=== PATIENT | female | born 1990 | race Caucasian/White ===

== ENCOUNTER 2018-06-15 15:18 | Emergency (ER) | payer OTHER ==
[2018-06-15 15:39] VITALS: BP 119/82; PULSE 83; RESP 16; TEMP 97.9; O2SAT 100
[2018-06-15] MEDS ORDERED: Clindamycin 600mg/50ml D5W 600 MG/50 ML VIAL IVPB ONE (15:50)
--- NOTE | 2018-06-15 15:53 | ED PDOC ---
HPI: Skin/Bite Injury Time Seen by Provider: 06/15/18 15:44 Chief Complaint (Nursing): Bite History Per: Patient Onset/Duration Of Symptoms: Days (3) Current Symptoms Are (Timing): Still Present Location Of Injury: Right: Hip Quality Of Symptoms: Swollen Severity: Moderate Additional Complaint(s): Redeness and swelling right hip x 3 days, possible insect bite. denies fever or drainage Past Medical History Vital Signs: Last Vital Signs Temp 97.9 F 06/15/18 15:36 Pulse 83 06/15/18 15:36 Resp 16 06/15/18 15:36 BP 119/82 06/15/18 15:36 Pulse Ox 100 06/15/18 15:53 - Medical History PMH: No Chronic Diseases - Family History Family History: States: Unknown Family Hx - Immunization History Hx Tetanus Toxoid Vaccination: No Hx Influenza Vaccination: No Hx Pneumococcal Vaccination: No - Home Medications Home Medications: Ambulatory Orders Medication Instructions Recorded Ciprofloxacin 0.3% [Ciloxan 0.3% 1 drop BOTHEYES QID #1 bottle 04/29/16 Oph SOLN] Clindamycin [Cleocin] 300 mg PO TID #30 cap 06/15/18 Naproxen [Naprosyn] 500 mg PO Q12H #20 tab 06/15/18 - Allergies Allergies/Adverse Reactions: Allergies Allergy/AdvReac Type Severity Reaction Status Date / Time No Known Allergies Allergy Verified 06/15/18 15:36 Review of Systems Constitutional: Negative for: Fever, Chills Skin: Positive for: Other (Cellulitis right hip) Physical Exam - Physical Exam Appears: Positive for: Non-toxic, No Acute Distress Skin: Positive for: Rash (Right hip 3cm x 4 cm area of erythema and induration. No fluctuance. Tender and warm) - Laboratory Results Result Diagrams: 06/15/18 15:55 - ECG O2 Sat by Pulse Oximetry: 100 Disposition - Clinical Impression Clinical Impression: Cellulitis - Patient ED Disposition Is Patient to be Admitted: No Counseled Patient/Family Regarding: Studies Performed, Diagnosis, Need For Followup, Rx Given - Disposition Referrals: [facility] [Outside] Disposition: Routine/Home Disposition Time: 17:19 Condition: FAIR Prescriptions: Clindamycin [Cleocin] 300 mg PO TID #30 cap Naproxen [Naprosyn] 500 mg PO Q12H #20 tab Instructions: Cellulitis (Skin Infection), Adult (DC) Forms: [facility] (Armenian)
[2018-06-15 16:13] LABS: BASO # 0.1 K/uL (0.0-0.2); BASO % 0.8 % (0.0-2.0); EOS % 0.3 % (0.0-4.0); HEMOGLOBIN 13.2 g/dL (12.0-16.0); LYMPH # 3.5 K/uL (1.0-4.3); LYMPH % 26.4 % (20.0-40.0); MEAN CELL VOLUME 83.6 fl (81.0-99.0); MEAN CORPUSCULAR HEMOGLOBIN 26.8 pg (27.0-31.0); MEAN PLATELET VOLUME 8.4 fl (7.2-11.7); MONO # 1.3 K/uL (0.0-0.8); MONO % 9.7 % (0.0-10.0); NEUT # 8.4 K/uL (1.8-7.0); NEUT % 62.8 % (50.0-75.0); NRBC % 0.1 % (0.0-0.0); RBC 4.94 Mil/uL (3.80-5.20); RED CELL DISTRIBUTION WIDTH 14.2 % (11.5-14.5); WHITE BLOOD COUNT 13.4 K/uL (4.8-10.8)
== END 2018-06-15 18:35 | disposition home or self-care (01) ==
LOC: H.ER 15:18
DX: L03.115 Cellulitis of right lower limb (principal); W57.XXXA Bitten or stung by nonvenomous insect and other nonvenomous arthropods, initial encounter

== ENCOUNTER 2018-10-28 06:38 | Emergency (ER) | payer OTHER ==
--- NOTE | 2018-10-28 07:50 | ED PDOC ---
HPI: Female Pain Time Seen by Provider: 10/28/18 07:01 Chief Complaint (Nursing): Female Genitourinary Chief Complaint (Provider): Female Genitourinary History Per: Patient History/Exam Limitations: no limitations Onset/Duration Of Symptoms: Days (x3) Current Symptoms Are (Timing): Still Present Additional Complaint(s): Patient is a 27 y/o female with no significant PMHx who presents to the ED for evaluation of pink vaginal spotting for the past three days and a few darker spots of vaginal bleeding since this morning. Patient was recently treated at [facility] for a bartholin cyst. Patient was given antibiotics and since the cyst has decreased in size and the pain had improved. However, patient's vaginal pain has returned and she is unsure what exactly is causing the pain. Patient denies abdominal pain. Patient had a positive test on 10/22/2018 but has had no workup for thus far. Patient has had one previous and no previous miscarriage or elective . Of note, patient's last period was on 09/22/2018. PCP: None Provided Past Medical History Reviewed: Historical Data, Nursing Documentation, Vital Signs Vital Signs: Last Vital Signs Temp 98.3 F 10/28/18 06:48 Pulse 87 10/28/18 06:48 Resp 18 10/28/18 06:48 BP 117/75 10/28/18 06:48 Pulse Ox 99 10/28/18 06:48 - Medical History PMH: No Chronic Diseases - Surgical History Surgical History: No Surg Hx - Family History Family History: States: Unknown Family Hx - Immunization History Hx Tetanus Toxoid Vaccination: No Hx Influenza Vaccination: No Hx Pneumococcal Vaccination: No - Home Medications Home Medications: Ambulatory Orders Medication Instructions Recorded Ciprofloxacin 0.3% [Ciloxan 0.3% 1 drop BOTHEYES QID #1 bottle 04/29/16 Ophth SOLN] Naproxen [Naprosyn] 500 mg PO Q12H #20 tab 06/15/18 RX: Clindamycin [Cleocin] 300 mg PO TID #30 cap 06/15/18 Miconazole Nitrate [Monistat 3] 1 each VG DAILY #1 kit 10/28/18 Nitrofurantoin Macrocrystals 100 mg PO BID #13 cap 10/28/18 [Macrobid] Pnv No.95/Ferrous Fum/Folic AC 1 each PO DAILY #30 tablet 10/28/18 [ Vitamins Tablet] - Allergies Allergies/Adverse Reactions: Allergies Allergy/AdvReac Type Severity Reaction Status Date / Time No Known Allergies Allergy Verified 06/15/18 15:36 Review of Systems ROS Statement: Except As Marked, All Systems Reviewed And Found Negative Gastrointestinal: Negative for: Abdominal Pain Genitourinary Female: Positive for: Vaginal Bleeding (few dark spots), Pelvic Pain, Other (p[ink vaginal spotting; bartholin cyst) Physical Exam - Reviewed Nursing Documentation Reviewed: Yes Vital Signs Reviewed: Yes - Physical Exam Appears: Positive for: No Acute Distress Head Exam: Positive for: ATRAUMATIC, NORMAL INSPECTION, NORMOCEPHALIC Pelvic Exam: Positive for: Mass (right bartholin cyst; no visible drainage). Negative for: Blood Comments: Besides physical inspection using speculum patient requested no additional exam. - Laboratory Results Result Diagrams: 10/28/18 07:58 - ECG O2 Sat by Pulse Oximetry: 99 (RA) Pulse Ox Interpretation: Normal Medical Decision Making Medical Decision Making: Time: 705 Impression: Vaginal Bleeding with First Trimester Plan: Type and Screen Beta-HCG, Quantitative CBC UA Preg 1st Trimester/OB TV [US] 800 Pt signed out to Dr. Chauhan pending labs and U/S Scribe Attestation: Documented by Ace Solorzano, acting as a scribe for Vero Clayton MD. Provider Scribe Attestation: All medical record entries made by the Scribe were at my direction and personally dictated by me. I have reviewed the chart and agree that the record accurately reflects my personal performance of the history, physical exam, medical decision making, and the department course for this patient. I have also personally directed, reviewed, and agree with the discharge instructions and d isposition. Disposition - Clinical Impression Clinical Impression: Urinary tract infection, Candidiasis of female genitalia, Threatened - Disposition Disposition: Transfer of Care Disposition Time: 08:00 Condition: IMPROVED Additional Instructions: FOLLOW-UP WITH [facility] SCHEDULED. Prescriptions: Miconazole Nitrate [Monistat 3] 1 each VG DAILY #1 kit Nitrofurantoin Macrocrystals [Macrobid] 100 mg PO BID #13 cap Pnv No.95/Ferrous Fum/Folic AC [ Vitamins Tablet] 1 each PO DAILY #30 tablet Instructions: Vulvovaginal Yeast Infection, Urinary Tract Infections in Adults, Threatened Miscarriage Forms: [facility] (Japanese), [facility] ED School/Work Excuse
--- NOTE | 2018-10-28 08:12 | ED PDOC ---
- Laboratory Results Result Diagrams: 10/28/18 07:58 - ECG O2 Sat by Pulse Oximetry: 99 (RA) Medical Decision Making Medical Decision Making: Time: 0800 Patient is endorsed to provider from Dr. Clayton. Accession No. : [id number] Patient Name / ID : KYRA CORNEJO / [id number] Exam Date : 10/28/2018 08:08:38 ( Approved ) Study Comment : Sex / Age : F / 27Y Creator : Nasir Nance MD Dictator : Nasir Nance MD Assembly Press Operator : Director Personal : Nasir Nance MD Approver2 : Report Date : 10/28/2018 09:37:47 My Comment : Date of service: 10/28/2018 HISTORY: vaginal bleed 1st tri. LMP 09/20/2018 COMPARISON: None available. TECHNIQUE: Grayscale and color Doppler sonographic images were obtained of the pelvis utilizing transvaginal approach. FINDINGS: UTERUS: Anteverted and normal in sizemeasuring 8.6 x 4.2 cm. ENDOMETRIUM: Cystic structure noted within the endometrial canal measuring 0.3 cm. CERVIX: No definite cervical abnormality identified. The cervix appears closed. RIGHT OVARY: Measures 3.7 x 2.6 x 1.8 cm. Corpus luteum noted measuring 2 cm. Normal ar terial flow seen. LEFT OVARY: Measures 2.8 x 2.2 x 3.1 cm. Sonographically unremarkable. Normal arterial flow seen. FREE FLUID: Small amount of pelvic free fluid noted, likely physiologic. OTHER FINDINGS: None. IMPRESSION: Cystic structure within the endometrial canal measuring 0.3 cm. No pole identified. Findings may be due to too early to detect or missed / in progress. Ectopic cannot be entirely excluded. Recommend followup with serial beta HCG levels and pelvic ultrasound. Right ovarian corpus luteum measuring 2 cm. 10:00 Pt states she is feeling better. Notified of lab and ultrasound results. States she has appt with [facility] in 2 days @ [facility]. Given copy of labs and imaging to take with her to appt. Scribe Attestation: Documented by Ace Solorzano, acting as a scribe Soheila Chauhan MD. Provider Scribe Attestation: All medical record entries made by the Scribe were at my direction and personally dictated by me. I have reviewed the chart and agree that the record accurately reflects my personal performance of the history, physical exam, medical decision making, and the department course for this patient. I have also personally directed, reviewed, and agree with the discharge instructions and disposition. Disposition - Clinical Impression Clinical Impression: Urinary tract infection, Candidiasis of female genitalia, Threatened - POA Present On Arrival: None - Disposition Disposition: Routine/Home Disposition Time: 10:08 Condition: IMPROVED Additional Instructions: FOLLOW-UP WITH [facility] SCHEDULED. Prescriptions: Miconazole Nitrate [Monistat 3] 1 each VG DAILY #1 kit Nitrofurantoin Macrocrystals [Macrobid] 100 mg PO BID #13 cap Pnv No.95/Ferrous Fum/Folic AC [ Vitamins Tablet] 1 each PO DAILY #30 tablet Instructions: Urinary Tract Infections in Adults, Vulvovaginal Yeast Infection, Threatened Miscarriage Forms: [employer] (Kinyarwanda)
[2018-10-28 08:13] LABS: BASO # 0.1 K/uL (0.0-0.2); BASO % 0.7 % (0.0-2.0); EOS # 0.1 K/uL (0.0-0.7); EOS % 0.6 % (0.0-4.0); HEMOGLOBIN 13.1 g/dL (12.0-16.0); LYMPH # 1.8 K/uL (1.0-4.3); LYMPH % 22.2 % (20.0-40.0); MEAN CELL VOLUME 85.9 fl (81.0-99.0); MEAN CORPUSCULAR HEMOGLOBIN 27.5 pg (27.0-31.0); MEAN PLATELET VOLUME 8.5 fl (7.2-11.7); MONO # 0.5 K/uL (0.0-0.8); MONO % 6.5 % (0.0-10.0); NEUT # 5.8 K/uL (1.8-7.0); NRBC % 0.1 % (0.0-0.0); RBC 4.75 Mil/uL (3.80-5.20); RED CELL DISTRIBUTION WIDTH 13.7 % (11.5-14.5); WHITE BLOOD COUNT 8.2 K/uL (4.8-10.8)
[2018-10-28 08:44] LABS: SQUAMOUS EPITHIAL 17 /hpf (0-5); URINE BACTERIA RARE (<OCC); URINE BILIRUBIN NEGATIVE (NEGATIVE); URINE BLOOD MODERATE (NEGATIVE); URINE CLARITY CLOUDY (Clear); URINE COLOR YELLOW (YELLOW); URINE GLUCOSE (UA) NEG (NEGATIVE); URINE LEUKOCYTE ESTERASE LARGE Leu/uL (Negative); URINE PROTEIN 30 mg/dL (NEGATIVE); URINE UROBILINOGEN 0.2-1.0 mg/dL (0.2-1.0)
--- NOTE | 2018-10-28 09:41 | US ---
Date of service: 10/28/2018 HISTORY: vaginal bleed 1st tri. LMP 09/20/2018 COMPARISON: None available. TECHNIQUE: Grayscale and color Doppler sonographic images were obtained of the pelvis utilizing transvaginal approach. FINDINGS: UTERUS: Anteverted and normal in sizemeasuring 8.6 x 4.2 cm. ENDOMETRIUM: Cystic structure noted within the endometrial canal measuring 0.3 cm. CERVIX: No definite cervical abnormality identified. The cervix appears closed. RIGHT OVARY: Measures 3.7 x 2.6 x 1.8 cm. Corpus luteum noted measuring 2 cm. Normal arterial flow seen. LEFT OVARY: Measures 2.8 x 2.2 x 3.1 cm. Sonographically unremarkable. Normal arterial flow seen. FREE FLUID: Small amount of pelvic free fluid noted, likely physiologic. OTHER FINDINGS: None. IMPRESSION: Cystic structure within the endometrial canal measuring 0.3 cm. No pole identified. Findings may be due to too early to detect or missed / in progress. Ectopic cannot be entirely excluded. Recommend followup with serial beta HCG levels and pelvic ultrasound. Right ovarian corpus luteum measuring 2 cm.
[2018-10-28 10:38] VITALS: BP 120/71; PULSE 81; RESP 16; TEMP 98.1
[2018-10-28 21:36] VITALS: O2SAT 99
== END 2018-10-28 10:37 | disposition home or self-care (01) ==
LOC: H.ER 06:38
DX: O20.0 Threatened abortion (principal); O23.40 Unspecified infection of urinary tract in pregnancy, unspecified trimester; O23.599 Infection of other part of genital tract in pregnancy, unspecified trimester

== ENCOUNTER 2019-01-05 20:36 | Emergency (ER) | payer MEDICAID, OTHER ==
[2019-01-05 21:14] VITALS: BP 121/84; PULSE 93; RESP 16; TEMP 98.6; O2SAT 100
--- NOTE | 2019-01-05 22:30 | ED PDOC ---
HPI: General Adult Time Seen by Provider: 01/05/19 22:13 Chief Complaint (Nursing): GI Problem Chief Complaint (Provider): : vomiting History Per: Patient History/Exam Limitations: no limitations Onset/Duration Of Symptoms: Days (3 weeks) Current Symptoms Are (Timing): Still Present Additional Complaint(s): 28 y/o female, approximately 6 weeks gestation, presents for evaluation of nausea/vomiting x 3 weeks. Patient states she feels "weak" throughout the day because of this. Patient also reports "pressure" to lower abdomen and lower back x 2 days. Denies fever, cough, congestion, chest pain, shortness of breath, palpitations, changes in bowel movements, urinary symptoms, vaginal bleeding/discharge Past Medical History Reviewed: Historical Data, Nursing Documentation, Vital Signs Vital Signs: Last Vital Signs Temp 98.6 F 01/05/19 21:12 Pulse 93 H 01/05/19 21:12 Resp 16 01/05/19 21:12 BP 121/84 01/05/19 21:12 Pulse Ox 100 01/05/19 21:12 - Medical History PMH: No Chronic Diseases - Surgical History Surgical History: No Surg Hx - Family History Family History: States: Unknown Family Hx - Living Arrangements Living Arrangements: With Family - Immunization History Hx Tetanus Toxoid Vaccination: No Hx Influenza Vaccination: No Hx Pneumococcal Vaccination: No - Home Medications Home Medications: Ambulatory Orders Medication Instructions Recorded Ciprofloxacin 0.3% [Ciloxan 0.3% 1 drop BOTHEYES QID #1 bottle 04/29/16 Ophth SOLN] Clindamycin [Cleocin] 300 mg PO TID #30 cap 06/15/18 Naproxen [Naprosyn] 500 mg PO Q12H #20 tab 06/15/18 Miconazole Nitrate [Monistat 3] 1 each VG DAILY #1 kit 10/28/18 Nitrofurantoin Macrocrystals 100 mg PO BID #13 cap 10/28/18 [Macrobid] Pnv No.95/Ferrous Fum/Folic AC 1 each PO DAILY #30 tablet 10/28/18 [ Vitamins Tablet] Doxylamine/Pyridoxine HCl (B6) 1 - 2 each PO HS #16 tablet. 01/06/19 [Elida Keen 10-10 mg Tablet] - Allergies Allergies/Adverse Reactions: Allergies Allergy/AdvReac Type Severity Reaction Status Date / Time No Known Allergies Allergy Verified 01/05/19 21:12 Review of Systems ROS Statement: Except As Marked, All Systems Reviewed And Found Negative Gastrointestinal: Positive for: Nausea, Vomiting Genitourinary Female: Positive for: Pelvic Pain Musculoskeletal: Positive for: Back Pain Physical Exam - Reviewed Nursing Documentation Reviewed: Yes Vital Signs Reviewed: Yes - Physical Exam Appears: Positive for: Well, Non-toxic, No Acute Distress Head Exam: Positive for: ATRAUMATIC, NORMAL INSPECTION, NORMOCEPHALIC Skin: Positive for: Normal Color Eye Exam: Positive for: Normal appearance ENT: Positive for: Normal ENT Inspection Cardiovascular/Chest: Positive for: Regular Rate, Rhythm Respiratory: Positive for: Normal Breath Sounds Gastrointestinal/Abdominal: Positive for: Bowel Sounds, Soft, Tenderness (suprapubic, RLQ, LLQ). Negative for: Distended, Guarding, Rebound Back: Positive for: Normal Inspection Extremity: Positive for: Normal ROM Neurological/Psych: Positive for: Awake, Alert, Oriented (x3) - Laboratory Results Result Diagrams: 01/05/19 22:40 01/05/19 22:40 - ECG O2 Sat by Pulse Oximetry: 100 - Progress ED Course And Treament: -upreg -udip -cbc -cmp -beta hcg -OB TV u/s -IV LR Obstetric ultrasound. Transvaginal. Indication: Pain. Technique: Real-time ultrasound images were obtained. Findings: Uterus measures 8.5x6.3x6.3 cm. Normal cervical length measuring 3.8 cm. The cervix is closed. Single, live intrauterine gestation. pole measures 2.9 cm. This corresponds to an estimated gestational age of 9 weeks and 5 days. heart rate 165 beats per minute. Normal ovaries. Impression: Single, live intrauterine gestation. No abnormality is seen Patient states she is feeling better on re-eval. Tolerating PO Patient educated on findings, discharged with rx Diclegis Advised follow up Collection Teller within 2-3 days Increase fluid intake, bland diet Return precautions given Disposition - Clinical Impression Clinical Impression: Abdominal pain in , Nausea/vomiting in - Patient ED Disposition Is Patient to be Admitted: No Counseled Patient/Family Regarding: Studies Performed, Diagnosis, Need For Followup, Rx Given - Disposition Disposition: Routine/Home Disposition Time: 02:10 Condition: IMPROVED Prescriptions: Doxylamine/Pyridoxine HCl (B6) [Diclegis Dr 10-10 mg Tablet] 1 - 2 each PO HS #16 tablet. Instructions: Nausea and Vomiting of (DC), Stomach Pain in Early
[2019-01-05 23:05] LABS: BASO # 0.1 K/uL (0.0-0.2); BASO % 0.8 % (0.0-2.0); EOS % 0.3 % (0.0-4.0); HEMOGLOBIN 12.3 g/dL (12.0-16.0); LYMPH # 3.4 K/uL (1.0-4.3); LYMPH % 29.9 % (20.0-40.0); MEAN CELL VOLUME 83.6 fl (81.0-99.0); MEAN CORPUSCULAR HEMOGLOBIN 26.6 pg (27.0-31.0); MEAN CORPUSCULAR HGB CONC 31.8 g/dL (33.0-37.0); MEAN PLATELET VOLUME 8.6 fl (7.2-11.7); MONO # 0.6 K/uL (0.0-0.8); MONO % 4.9 % (0.0-10.0); NEUT # 7.2 K/uL (1.8-7.0); NEUT % 64.1 % (50.0-75.0); RBC 4.62 Mil/uL (3.80-5.20); RED CELL DISTRIBUTION WIDTH 13.4 % (11.5-14.5); WHITE BLOOD COUNT 11.3 K/uL (4.8-10.8)
[2019-01-05 23:24] LABS: ALB/GLOB RATIO 1.2 (1.0-2.1); ALBUMIN 3.9 g/dL (3.5-5.0); ALT/SGPT 15 U/L (9-52); AST/SGOT 25 U/L (14-36); BLOOD UREA NITROGEN 15 mg/dl (7-17); CALCIUM 9.3 mg/dL (8.4-10.2); GFR NON-AFRICAN AMERICAN > 60
[2019-01-05] MEDS: Lactated Ringer's 1,000 ML IV STA (23:37)
[2019-01-06] MEDS: Lactated Ringer's 1,000 ML IV STA (01:15)
--- NOTE | 2019-01-06 12:52 | US ---
Date of service: 01/05/2019 PROCEDURE: First trimester ultrasound HISTORY: ; pain COMPARISON: 10/28/2018. TECHNIQUE: Standard protocol for this study/examination. FINDINGS: LMP: 10/29/2018. Prior examinations from the current : None TECHNIQUE: Real-time 2D imaging, duplex and color Doppler. FINDINGS: Cardiac activity: Present Rate: 165 BPM Measurements: [place] rump length: 2.89 cm Gestational age based on CRL 9 weeks 5 days Gestational age 9 weeks 4 days based on gestational sac measurement 4.23 cm Gestational age derived from LMP: 9 weeks 5 days PATRICE based on LMP: 08/05/2019 PATRICE based on biometry: 08/05/2019 Gestational concordance documented. Yolk sac identified Cervix: No Cervical abnormalities: Negative examination for cervical dilatation or effacement. Closed cervix measuring 3.80 cm Subchorionic hemorrhage: None UTERUS: 6.3 x 6.3 x 8.5 cm. ADNEXA: Right: 2 x 2.5 x 3.0 cm. Normal Doppler arterial waveform documented. Left: 1.1 x 2.1 x 2.2 cm. Normal Doppler arterial waveform documented Fluid in the cul-de-sac: None IMPRESSION: 9 weeks 5 days live intrauterine gestation. Gestational concordance documented. Concordant findings (preliminary report) provided by [facility].
== END 2019-01-06 02:46 | disposition home or self-care (01) ==
LOC: H.ER 20:36
DX: O26.891 Other specified pregnancy related conditions, first trimester (principal); R10.2 Pelvic and perineal pain; O21.0 Mild hyperemesis gravidarum; Z3A.09 9 weeks gestation of pregnancy
CPT/HCPCS: 76817; 80053; 84702; 85025; 99283; J7120